=== PATIENT | female | born 1995 | race Two or more races ===

== ENCOUNTER → 2024-11-21 | Outpatient (CLI) | payer OTHER | LOC: M RAD 07:43 | PROVIDERS: ATTEND Student in an Organized Health Care Education/Training Program | DX: Z34.80 Encounter for supervision of other normal pregnancy, unspecified trimester (principal) ==

== ENCOUNTER → 2024-12-04 | Outpatient (REF) | payer OTHER | LOC: M PLALAB 08:45 | PROVIDERS: ATTEND Nurse Practitioner Family | DX: Z34.03 Encounter for supervision of normal first pregnancy, third trimester (principal); Z3A.37 37 weeks gestation of pregnancy ==

== ENCOUNTER 2024-12-15 15:48 | Outpatient (CLI) | payer OTHER ==
[~2024-12-15] VITALS: Ht 160 cm; Wt 86.5 kg
[2024-12-15] MEDS ORDERED: UNIS25TA3 PO (16:07)
[2024-12-15 16:09] VITALS: BP 140/92
[2024-12-15 16:26] VITALS: BP 136/95
[2024-12-15 17:29] VITALS: BP 130/90
[2024-12-17] MEDS ORDERED: TUMS500C PO (14:05)
== END 2024-12-15 18:20 | disposition home or self-care (01) ==
LOC: M LDO 15:48
PROVIDERS: ATTEND Obstetrics & Gynecology
DX: O47.1 False labor at or after 37 completed weeks of gestation (principal); O26.893 Other specified pregnancy related conditions, third trimester; N89.8 Other specified noninflammatory disorders of vagina; Z3A.38 38 weeks gestation of pregnancy
CPT/HCPCS: 59025; G0463